=== PATIENT | male | born 1935 | race Caucasian/White ===

== ENCOUNTER 2022-09-18 16:00 | Inpatient (IN) | payer BC, OTHER ==
[2022-09-18] MEDS ORDERED: SODIUM CHLORIDE 1,000 ML IV STA (18:28)
[2022-09-18 19:17] LABS: BASO % 0.2 % (0-2.0); HEMATOCRIT 37.4 % (35.4-49); HEMOGLOBIN 12.4 GM/dL (11.7-16.9); LYMPH % 6.4 % (8-40); MCH 29.4 pg (25.7-33.7); MCHC 33.3 g/dl (32.0-35.9); MEAN CELL VOLUME 88.2 fl (80-96); MEAN PLT VOLUME 8.9 fl (7.5-11.1); MONO % 5.8 % (3.8-10.2); NEUT % 87.6 % (42.8-82.8); PLATELET COUNT 244 10^3/uL (134-434); RBC 4.23 M/mm3 (4.00-5.60); RDW 13.7 % (11.9-15.9); WHITE BLOOD COUNT 16.1 K/mm3 (4.0-10.0)
[2022-09-18 19:32] LABS: POTASSIUM 4.4 mmol/L (3.5-5.1)
[2022-09-18 19:33] LABS: CALCIUM 9.4 mg/dL (8.5-10.1)
[2022-09-18 19:34] LABS: ALBUMIN 3.6 g/dl (3.4-5.0); BLOOD UREA NITROGEN 18.7 mg/dL (7-18)
[2022-09-18 19:36] LABS: CREATININE 0.7 mg/dL (0.55-1.3)
[2022-09-18 19:38] LABS: BILIRUBIN,TOTAL 0.4 mg/dL (0.2-1); TOT PROT 6.9 g/dl (6.4-8.2)
[2022-09-18] MEDS ORDERED: HALOPERIDOL LACTATE 5 MG/ML IM ONE ×2 (20:17→20:27)
[2022-09-18 22:00] LABS: EPI CELLS 14 /uL (0-25.1); HYALINE CASTS 1 /uL (0-3.1); URINE APPEARANCE CLEAR; URINE BACTERIA 19 /uL (0-1359); URINE BILIRUBIN NEGATIVE (NEGATIVE); URINE COLOR YELLOW; URINE GLUCOSE (UA) NEGATIVE (NEGATIVE); URINE KETONE 1+ (NEGATIVE); URINE LEUK ESTERASE NEGATIVE (NEGATIVE); URINE NITRITE NEGATIVE (NEGATIVE); URINE PROTEIN NEGATIVE (NEGATIVE); URINE RBC 136 /uL (0-23.9); URINE WBC 4 /uL (0-25.8)
[2022-09-18] MEDS ORDERED: PIPERACILLIN/TAZOB 3.375 GM 3.375 GM in DEXTROSE 5%-WATER - 50 ML IVPB ONE (22:43)
[2022-09-18] MEDS ORDERED: PIPERACILLIN/TAZOB 3.375 GM 3.375 GM/50 ML BAG IVPB ONE (22:55)
[2022-09-19] MEDS ORDERED: BISACODYL 5 MG TABLET.DR (FP) PO PRN (05:17)
[2022-09-19] MEDS ORDERED: MELATONIN 5 MG TABLETS PO PRN (05:23)
[2022-09-19] MEDS: DEXTROSE 5%-0.45% SALINE 1,000 ML IV SCH (05:25)
[2022-09-19] MEDS: QUEtiapine FUMARATE 25 MG TABLET PO SCH ×3 (05:52→22:14)
[2022-09-19 08:20] LABS: BASO % 0.5 % (0-2.0); EOS % 0.1 % (0-4.5); HEMATOCRIT 34.1 % (35.4-49); HEMOGLOBIN 11.4 GM/dL (11.7-16.9); LYMPH % 7.6 % (8-40); MCHC 33.5 g/dl (32.0-35.9); MEAN CELL VOLUME 89.5 fl (80-96); MONO % 8.5 % (3.8-10.2); NEUT % 83.3 % (42.8-82.8); PLATELET COUNT 224 10^3/uL (134-434); RBC 3.81 M/mm3 (4.00-5.60); RDW 13.6 % (11.9-15.9); WHITE BLOOD COUNT 16.5 K/mm3 (4.0-10.0)
[2022-09-19 08:43] LABS: POTASSIUM 3.6 mmol/L (3.5-5.1)
[2022-09-19 08:49] LABS: ALBUMIN 3.2 g/dl (3.4-5.0); BLOOD UREA NITROGEN 17.4 mg/dL (7-18); CALCIUM 8.8 mg/dL (8.5-10.1)
[2022-09-19 08:50] LABS: CREATININE 0.7 mg/dL (0.55-1.3)
[2022-09-19 08:52] LABS: BILIRUBIN,TOTAL 0.7 mg/dL (0.2-1)
[2022-09-19] MEDS ORDERED: PIPERACILLIN/TAZOB 3.375 GM 3.375 GM in DEXTROSE 5%-WATER - 50 ML IVPB SCH (10:00)
[2022-09-19] MEDS: LISINOPRIL 5 MG TABLET PO SCH (10:08)
[2022-09-19] MEDS: CHOLECALCIFEROL (VIT D3) 1,000 UNIT (25 MCG) TABLET PO SCH (10:08)
[2022-09-19] MEDS: FERROUS SO4 325 MG TABLET (FP) PO SCH (10:08)
[2022-09-19] MEDS: traZODone HCL 50 MG TABLET (FP) PO SCH ×2 (10:08→22:14)
[2022-09-19] MEDS: LIDOCAINE 5% TOPICAL PATCH TP SCH (10:45)
[2022-09-19 18:15] LABS: N-TERMINAL BNP 885.6 pg/ml (5-450)
[2022-09-19] MEDS: PIPERACILLIN/TAZOB 3.375 GM 3.375 GM in DEXTROSE 5%-WATER - 50 ML IVPB SCH (18:18)
[2022-09-19] MEDS: DOCUSATE SODIUM 100 MG CAPSULE (FP) PO SCH (22:14)
[2022-09-19] MEDS: LIDOCAINE PATCH REMOVAL MC SCH (23:30)
[2022-09-20] MEDS: PIPERACILLIN/TAZOB 3.375 GM 3.375 GM in DEXTROSE 5%-WATER - 50 ML IVPB SCH ×3 (02:19→17:22)
[2022-09-20] MEDS: DEXTROSE 5%-0.45% SALINE 1,000 ML IV SCH (02:19)
[2022-09-20] MEDS: QUEtiapine FUMARATE 25 MG TABLET PO SCH ×3 (05:38→22:20)
[2022-09-20 10:27] LABS: BASO % 0.5 % (0-2.0); EOS % 1.3 % (0-4.5); HEMATOCRIT 37.1 % (35.4-49); HEMOGLOBIN 12.5 GM/dL (11.7-16.9); LYMPH % 17.4 % (8-40); MCHC 33.7 g/dl (32.0-35.9); MEAN CELL VOLUME 88.9 fl (80-96); MEAN PLT VOLUME 9.3 fl (7.5-11.1); MONO % 9.7 % (3.8-10.2); NEUT % 71.1 % (42.8-82.8); PLATELET COUNT 210 10^3/uL (134-434); RBC 4.18 M/mm3 (4.00-5.60); RDW 13.7 % (11.9-15.9); WHITE BLOOD COUNT 11.3 K/mm3 (4.0-10.0)
[2022-09-20 10:44] LABS: POTASSIUM 3.5 mmol/L (3.5-5.1)
[2022-09-20 10:53] LABS: BLOOD UREA NITROGEN 8.9 mg/dL (7-18); CALCIUM 8.9 mg/dL (8.5-10.1)
[2022-09-20 10:56] LABS: CREATININE 0.6 mg/dL (0.55-1.3)
[2022-09-20 10:58] LABS: BILIRUBIN,TOTAL 0.6 mg/dL (0.2-1)
[2022-09-20] MEDS: LIDOCAINE 5% TOPICAL PATCH TP SCH (11:59)
[2022-09-20] MEDS: traZODone HCL 50 MG TABLET (FP) PO SCH ×2 (11:59→22:19)
[2022-09-20] MEDS: FERROUS SO4 325 MG TABLET (FP) PO SCH (11:59)
[2022-09-20] MEDS: LISINOPRIL 5 MG TABLET PO SCH (12:00)
[2022-09-20] MEDS: CHOLECALCIFEROL (VIT D3) 1,000 UNIT (25 MCG) TABLET PO SCH (12:00)
[2022-09-20] MEDS: DOCUSATE SODIUM 100 MG CAPSULE (FP) PO SCH (22:19)
[2022-09-20] MEDS: LIDOCAINE PATCH REMOVAL MC SCH (22:19)
[2022-09-21] MEDS: PIPERACILLIN/TAZOB 3.375 GM 3.375 GM in DEXTROSE 5%-WATER - 50 ML IVPB SCH ×3 (02:00→18:21)
[2022-09-21] MEDS: DEXTROSE 5%-0.45% SALINE 1,000 ML IV SCH (05:23)
[2022-09-21] MEDS: QUEtiapine FUMARATE 25 MG TABLET PO SCH ×3 (05:24→23:21)
[2022-09-21] MEDS: LIDOCAINE 5% TOPICAL PATCH TP SCH (10:01)
[2022-09-21] MEDS: traZODone HCL 50 MG TABLET (FP) PO SCH ×2 (10:02→23:21)
[2022-09-21] MEDS: FERROUS SO4 325 MG TABLET (FP) PO SCH (10:02)
[2022-09-21] MEDS: CHOLECALCIFEROL (VIT D3) 1,000 UNIT (25 MCG) TABLET PO SCH (10:02)
[2022-09-21] MEDS: LISINOPRIL 5 MG TABLET PO SCH (10:02)
[2022-09-21] MEDS: OLANZapine 5 MG TABLET PO PRN (11:15)
[2022-09-21] MEDS: LIDOCAINE PATCH REMOVAL MC SCH (23:15)
[2022-09-21] MEDS: DOCUSATE SODIUM 100 MG CAPSULE (FP) PO SCH (23:21)
[2022-09-22] MEDS: PIPERACILLIN/TAZOB 3.375 GM 3.375 GM in DEXTROSE 5%-WATER - 50 ML IVPB SCH ×3 (01:58→17:32)
[2022-09-22] MEDS: QUEtiapine FUMARATE 25 MG TABLET PO SCH ×2 (06:31→14:32)
[2022-09-22] MEDS: DEXTROSE 5%-0.45% SALINE 1,000 ML IV SCH (06:32)
[2022-09-22] MEDS: CHOLECALCIFEROL (VIT D3) 1,000 UNIT (25 MCG) TABLET PO SCH (09:37)
[2022-09-22] MEDS: FERROUS SO4 325 MG TABLET (FP) PO SCH (09:37)
[2022-09-22] MEDS: LISINOPRIL 5 MG TABLET PO SCH (09:37)
[2022-09-22] MEDS: traZODone HCL 50 MG TABLET (FP) PO SCH (09:37)
[2022-09-22] MEDS: LIDOCAINE 5% TOPICAL PATCH TP SCH (09:37)
[2022-09-22 09:50] LABS: BASO % 0.7 % (0-2.0); EOS % 1.9 % (0-4.5); HEMATOCRIT 34.8 % (35.4-49); HEMOGLOBIN 11.6 GM/dL (11.7-16.9); MCH 29.9 pg (25.7-33.7); MCHC 33.2 g/dl (32.0-35.9); MEAN CELL VOLUME 89.9 fl (80-96); MONO % 6.9 % (3.8-10.2); NEUT % 81.5 % (42.8-82.8); PLATELET COUNT 245 10^3/uL (134-434); RBC 3.87 M/mm3 (4.00-5.60); RDW 13.1 % (11.9-15.9)
[2022-09-22 10:02] LABS: POTASSIUM 3.4 mmol/L (3.5-5.1)
[2022-09-22 10:08] LABS: ALBUMIN 2.8 g/dl (3.4-5.0); BLOOD UREA NITROGEN 10.6 mg/dL (7-18); CALCIUM 8.4 mg/dL (8.5-10.1)
[2022-09-22 10:11] LABS: CREATININE 0.6 mg/dL (0.55-1.3)
[2022-09-22 10:12] LABS: TOT PROT 5.7 g/dl (6.4-8.2)
[2022-09-22 10:13] LABS: BILIRUBIN,TOTAL 0.5 mg/dL (0.2-1)
[2022-09-22] MEDS ORDERED: KCL 10 MEQ IVPB 10 MEQ/100 ML INFUS.BAG IVPB SCH (10:15)
[2022-09-22] MEDS: OLANZapine 5 MG TABLET PO PRN (10:52)
[2022-09-22] MEDS: LIDOCAINE PATCH REMOVAL MC SCH (22:05)
[2022-09-22] MEDS: DOCUSATE SODIUM 100 MG CAPSULE (FP) PO SCH (22:05)
[2022-09-23] MEDS: traZODone HCL 50 MG TABLET (FP) PO SCH ×3 (00:51→21:27)
[2022-09-23] MEDS: QUEtiapine FUMARATE 25 MG TABLET PO SCH ×4 (00:51→21:26)
[2022-09-23] MEDS: PIPERACILLIN/TAZOB 3.375 GM 3.375 GM in DEXTROSE 5%-WATER - 50 ML IVPB SCH ×3 (01:39→18:20)
[2022-09-23] MEDS: DEXTROSE 5%-0.45% SALINE 1,000 ML IV SCH (01:39)
[2022-09-23] MEDS: LISINOPRIL 5 MG TABLET PO SCH (10:00)
[2022-09-23] MEDS: FERROUS SO4 325 MG TABLET (FP) PO SCH (10:05)
[2022-09-23] MEDS: CHOLECALCIFEROL (VIT D3) 1,000 UNIT (25 MCG) TABLET PO SCH (10:05)
[2022-09-23] MEDS: LIDOCAINE 5% TOPICAL PATCH TP SCH (10:07)
[2022-09-23] MEDS: DOCUSATE SODIUM 100 MG CAPSULE (FP) PO SCH (21:26)
[2022-09-23] MEDS: LIDOCAINE PATCH REMOVAL MC SCH (21:28)
[2022-09-24] MEDS: DEXTROSE 5%-0.45% SALINE 1,000 ML IV SCH (02:00)
[2022-09-24] MEDS: PIPERACILLIN/TAZOB 3.375 GM 3.375 GM in DEXTROSE 5%-WATER - 50 ML IVPB SCH ×3 (02:44→18:32)
[2022-09-24] MEDS: QUEtiapine FUMARATE 25 MG TABLET PO SCH ×3 (07:05→21:45)
[2022-09-24] MEDS: traZODone HCL 50 MG TABLET (FP) PO SCH ×2 (09:57→21:44)
[2022-09-24] MEDS: FERROUS SO4 325 MG TABLET (FP) PO SCH (09:57)
[2022-09-24] MEDS: CHOLECALCIFEROL (VIT D3) 1,000 UNIT (25 MCG) TABLET PO SCH (09:57)
[2022-09-24] MEDS: LISINOPRIL 5 MG TABLET PO SCH (09:58)
[2022-09-24] MEDS: OLANZapine 5 MG TABLET PO PRN (10:01)
[2022-09-24] MEDS: LIDOCAINE 5% TOPICAL PATCH TP SCH (10:05)
[2022-09-24 10:35] LABS: BASO % 0.6 % (0-2.0); EOS % 2.7 % (0-4.5); HEMATOCRIT 35.5 % (35.4-49); HEMOGLOBIN 11.6 GM/dL (11.7-16.9); LYMPH % 11.9 % (8-40); MCHC 32.8 g/dl (32.0-35.9); MEAN CELL VOLUME 88.3 fl (80-96); MEAN PLT VOLUME 9.2 fl (7.5-11.1); MONO % 6.7 % (3.8-10.2); NEUT % 78.1 % (42.8-82.8); PLATELET COUNT 293 10^3/uL (134-434); RBC 4.02 M/mm3 (4.00-5.60); WHITE BLOOD COUNT 12.4 K/mm3 (4.0-10.0)
[2022-09-24 10:43] LABS: POTASSIUM 3.3 mmol/L (3.5-5.1)
[2022-09-24 10:46] LABS: CALCIUM 8.4 mg/dL (8.5-10.1)
[2022-09-24 10:47] LABS: BLOOD UREA NITROGEN 7.8 mg/dL (7-18)
[2022-09-24 10:50] LABS: CREATININE 0.6 mg/dL (0.55-1.3)
[2022-09-24 10:52] LABS: BILIRUBIN,TOTAL 0.5 mg/dL (0.2-1)
[2022-09-24] MEDS: DOCUSATE SODIUM 100 MG CAPSULE (FP) PO SCH (21:44)
[2022-09-25] MEDS: PIPERACILLIN/TAZOB 3.375 GM 3.375 GM in DEXTROSE 5%-WATER - 50 ML IVPB SCH ×2 (02:19→11:05)
[2022-09-25] MEDS: QUEtiapine FUMARATE 25 MG TABLET PO SCH ×3 (05:30→23:33)
[2022-09-25] MEDS: LIDOCAINE PATCH REMOVAL MC SCH ×2 (05:30→23:33)
[2022-09-25] MEDS: CHOLECALCIFEROL (VIT D3) 1,000 UNIT (25 MCG) TABLET PO SCH (11:04)
[2022-09-25] MEDS: OLANZapine 5 MG TABLET PO PRN (11:04)
[2022-09-25] MEDS: LISINOPRIL 5 MG TABLET PO SCH (11:04)
[2022-09-25] MEDS: FERROUS SO4 325 MG TABLET (FP) PO SCH (11:04)
[2022-09-25] MEDS: traZODone HCL 50 MG TABLET (FP) PO SCH ×2 (11:04→23:33)
[2022-09-25] MEDS: LIDOCAINE 5% TOPICAL PATCH TP SCH (11:05)
[2022-09-25] MEDS ORDERED: LORazepam 2 MG/ML SDV VIAL IVPUSH PRN (12:51)
[2022-09-25] MEDS: LORazepam 2 MG/ML SDV VIAL IM PRN (13:52)
[2022-09-25 14:50] VITALS: BMI 23.3
[2022-09-25] MEDS: AMOX TR/POT CLAV 875MG/125MG TABLETS (FP) PO SCH (19:05)
[2022-09-25] MEDS: DOCUSATE SODIUM 100 MG CAPSULE (FP) PO SCH (23:33)
[2022-09-26] MEDS: QUEtiapine FUMARATE 25 MG TABLET PO SCH ×3 (05:08→13:57)
[2022-09-26] MEDS ORDERED: INSULIN SLIDING SCALE (NOVOLOG) 1 VIAL SQ ONE (06:18)
[2022-09-26 06:31] VITALS: RESP 18
[2022-09-26 09:31] LABS: BASO % 0.6 % (0-2.0); EOS % 3.8 % (0-4.5); HEMATOCRIT 33.6 % (35.4-49); HEMOGLOBIN 11.6 GM/dL (11.7-16.9); LYMPH % 18.6 % (8-40); MCHC 34.5 g/dl (32.0-35.9); MEAN CELL VOLUME 86.9 fl (80-96); MEAN PLT VOLUME 8.6 fl (7.5-11.1); MONO % 7.3 % (3.8-10.2); NEUT % 69.7 % (42.8-82.8); PLATELET COUNT 270 10^3/uL (134-434); RBC 3.87 M/mm3 (4.00-5.60); RDW 13.4 % (11.9-15.9); WHITE BLOOD COUNT 7.9 K/mm3 (4.0-10.0)
[2022-09-26] MEDS: LISINOPRIL 5 MG TABLET PO SCH (09:39)
[2022-09-26] MEDS: traZODone HCL 50 MG TABLET (FP) PO SCH (09:39)
[2022-09-26 09:40] LABS: POTASSIUM 3.6 mmol/L (3.5-5.1)
[2022-09-26] MEDS: LIDOCAINE 5% TOPICAL PATCH TP SCH (09:40)
[2022-09-26] MEDS: CHOLECALCIFEROL (VIT D3) 1,000 UNIT (25 MCG) TABLET PO SCH (09:40)
[2022-09-26] MEDS: FERROUS SO4 325 MG TABLET (FP) PO SCH (09:40)
[2022-09-26] MEDS: AMOX TR/POT CLAV 875MG/125MG TABLETS (FP) PO SCH (09:40)
[2022-09-26] MEDS: LORazepam 2 MG/ML SDV VIAL IM PRN (09:40)
[2022-09-26 09:48] LABS: ALBUMIN 2.8 g/dl (3.4-5.0); CALCIUM 8.4 mg/dL (8.5-10.1)
[2022-09-26 09:49] LABS: BLOOD UREA NITROGEN 9.9 mg/dL (7-18)
[2022-09-26 09:52] LABS: CREATININE 0.6 mg/dL (0.55-1.3)
[2022-09-26 09:53] LABS: BILIRUBIN,TOTAL 0.2 mg/dL (0.2-1); TOT PROT 5.7 g/dl (6.4-8.2)
[2022-09-26 13:29] VITALS: BP 113/52; PULSE 75; TEMP 97.6
== END 2022-09-26 15:04 | DRG 445 ==
LOC: JER 16:00 → JERBED 23:08 → J5S 09-19 03:17
PROVIDERS: ADMIT Internal Medicine; ATTEND Internal Medicine
DX: K81.0 Acute cholecystitis (principal); F03.918 Unspecified dementia, unspecified severity, with other behavioral disturbance; N17.9 Acute kidney failure, unspecified; I35.0 Nonrheumatic aortic (valve) stenosis; D72.829 Elevated white blood cell count, unspecified; I12.9 Hypertensive chronic kidney disease with stage 1 through stage 4 chronic kidney disease, or unspecified chronic kidney disease; N18.9 Chronic kidney disease, unspecified; E78.5 Hyperlipidemia, unspecified; R01.1 Cardiac murmur, unspecified; R47.02 Dysphasia; D64.9 Anemia, unspecified; R41.82 Altered mental status, unspecified; F32.A Depression, unspecified; Z86.73 Personal history of transient ischemic attack (TIA), and cerebral infarction without residual deficits
CPT/HCPCS: 36415; 71045-TC-FY; 74176-TC; 76705-TC; 80053; 80061; 81003; 82550; 82553; 83036; 83690; 83880; 84484; 85025; 87040; 87086; 87635; 93005; 93010; 93306-TC; 99285-25

== ENCOUNTER 2023-01-15 09:53 | Emergency (ER) | payer OTHER ==
[2023-01-15 10:17] VITALS: BMI 27.3
[2023-01-15] MEDS ORDERED: HALOPERIDOL LACTATE 5 MG/ML IM ONE (11:05)
[2023-01-15] MEDS ORDERED: HALOPERIDOL LACTATE 5 MG/ML ONE (11:07)
[2023-01-15] MEDS ORDERED: MIDAZOLAM HCL 2 MG/2 ML SINGLE DOSE VIAL IM ONE (11:20)
[2023-01-15] MEDS ORDERED: MIDAZOLAM HCL 2 MG/2 ML SINGLE DOSE VIAL ONE (11:27)
[2023-01-15 12:29] LABS: BASO % 0.6 % (0-2.0); EOS % 2.3 % (0-4.5); HEMATOCRIT 36.4 % (35.4-49); HEMOGLOBIN 12.3 GM/dL (11.7-16.9); LYMPH % 18.1 % (8-40); MCH 29.8 pg (25.7-33.7); MCHC 33.8 g/dl (32.0-35.9); MEAN CELL VOLUME 88.1 fl (80-96); MEAN PLT VOLUME 8.8 fl (7.5-11.1); MONO % 8.4 % (3.8-10.2); NEUT % 70.6 % (42.8-82.8); PLATELET COUNT 272 10^3/uL (134-434); RBC 4.14 M/mm3 (4.00-5.60); WHITE BLOOD COUNT 9.6 K/mm3 (4.0-10.0)
[2023-01-15 12:52] LABS: POTASSIUM 4.1 mmol/L (3.5-5.1)
[2023-01-15 12:54] LABS: ALBUMIN 3.5 g/dl (3.4-5.0); BLOOD UREA NITROGEN 23.2 mg/dL (7-18); CALCIUM 8.5 mg/dL (8.5-10.1)
[2023-01-15 12:57] LABS: CREATININE 0.7 mg/dL (0.55-1.3)
[2023-01-15 12:59] LABS: BILIRUBIN,TOTAL 0.2 mg/dL (0.2-1); TOT PROT 6.5 g/dl (6.4-8.2)
[2023-01-15 23:23] VITALS: BP 147/70; PULSE 84; RESP 17; TEMP 98.5
== END 2023-01-16 00:11 | disposition home or self-care (01) ==
LOC: JER 09:53
PROC: 3E023GC Introduction of Other Therapeutic Substance into Muscle, Percutaneous Approach (ICD-10-PCS; principal; 2023-01-15)
PROC: 3E023GC Introduction of Other Therapeutic Substance into Muscle, Percutaneous Approach (ICD-10-PCS; 2023-01-15)
DX: Z04.3 Encounter for examination and observation following other accident (principal)
CPT/HCPCS: 36415; 70450-TC; 71045-TC-FY; 72125-TC; 72192-TC; 80053; 82962; 83605; 84484; 85025; 87040; 93005; 93010; 99285-25

== ENCOUNTER 2023-04-20 11:24 | Emergency (ER) | payer OTHER ==
[2023-04-20 11:52] VITALS: BMI 24.5
[2023-04-20] MEDS ORDERED: HALOPERIDOL LACTATE 5 MG/ML ONE (11:56)
[2023-04-20] MEDS: HALOPERIDOL LACTATE 5 MG/ML IM ONE (12:01)
[2023-04-20 13:02] LABS: VENOUS O2 SATURATION 84.3 % (70-80); VENOUS PCO2 41.2 mmHg (38-52); VENOUS PH 7.413 (7.310-7.410)
[2023-04-20 13:04] LABS: BASO % 0.6 % (0-2.0); EOS % 1.9 % (0-4.5); HEMATOCRIT 33.6 % (35.4-49); HEMOGLOBIN 11.4 GM/dL (11.7-16.9); MCH 30.4 pg (25.7-33.7); MCHC 34.1 g/dl (32.0-35.9); MEAN CELL VOLUME 89.2 fl (80-96); MEAN PLT VOLUME 8.8 fl (7.5-11.1); MONO % 8.2 % (3.8-10.2); NEUT % 76.3 % (42.8-82.8); PLATELET COUNT 264 10^3/uL (134-434); RBC 3.77 M/mm3 (4.00-5.60); RDW 13.9 % (11.9-15.9); WHITE BLOOD COUNT 13.9 K/mm3 (4.0-10.0)
[2023-04-20 13:09] LABS: INR 1.1 (0.83-1.09); PROTHROMBIN TIME (PATIENT) 12.8 SEC (9.7-13.0)
[2023-04-20 13:12] LABS: ACTIVATED PTT 17.9 SECONDS (25.2-36.5)
[2023-04-20] MEDS ORDERED: MIDAZOLAM HCL 2 MG/2 ML SINGLE DOSE VIAL ONE (13:40)
[2023-04-20] MEDS: MIDAZOLAM HCL 2 MG/2 ML SINGLE DOSE VIAL IVPUSH ONE (13:59)
[2023-04-20] MEDS ORDERED: ACETAMINOPHEN INJECTION 100 ML IVPB ONE (14:16)
[2023-04-20 14:20] LABS: LACTIC ACID 2.2 mmol/L (0.4-2.0)
[2023-04-20] MEDS: SODIUM CHLORIDE 0.9% 500 ML INFUS.BAG IV ONE (14:21)
[2023-04-20] MEDS: ACETAMINOPHEN 1000 MG/100 ML BAG IVPB ONE (14:21)
[2023-04-20 14:42] LABS: URINE APPEARANCE CLEAR; URINE BILIRUBIN NEGATIVE (NEGATIVE); URINE COLOR YELLOW; URINE GLUCOSE (UA) NEGATIVE (NEGATIVE); URINE KETONE NEGATIVE (NEGATIVE); URINE LEUK ESTERASE NEGATIVE (NEGATIVE); URINE NITRITE NEGATIVE (NEGATIVE); URINE PROTEIN TRACE (NEGATIVE); URINE UROBILINOGEN 0.2 mg/dL (0.2-1.0)
[2023-04-20 14:56] LABS: POTASSIUM 3.8 mmol/L (3.5-5.1)
[2023-04-20 14:59] LABS: ALBUMIN 3.2 g/dl (3.4-5.0); CALCIUM 8.6 mg/dL (8.5-10.1)
[2023-04-20 15:00] LABS: BLOOD UREA NITROGEN 29.4 mg/dL (7-18)
[2023-04-20 15:02] LABS: CREATININE 0.7 mg/dL (0.55-1.3)
[2023-04-20 15:04] LABS: BILIRUBIN,TOTAL 0.3 mg/dL (0.2-1); TOT PROT 6.2 g/dl (6.4-8.2)
[2023-04-20 15:07] LABS: POTASSIUM 3.9 mmol/L (3.5-5.1)
[2023-04-20 15:09] LABS: ALBUMIN 3.2 g/dl (3.4-5.0); CALCIUM 8.8 mg/dL (8.5-10.1)
[2023-04-20 15:10] LABS: BLOOD UREA NITROGEN 28.3 mg/dL (7-18)
[2023-04-20 15:13] LABS: CREATININE 0.8 mg/dL (0.55-1.3)
[2023-04-20 15:14] LABS: BILIRUBIN,TOTAL 0.3 mg/dL (0.2-1)
[2023-04-20 15:15] VITALS: BP 130/64; PULSE 78; RESP 18
[2023-04-20 15:15] LABS: TOT PROT 6.2 g/dl (6.4-8.2)
[2023-04-20 15:27] VITALS: TEMP 97.6
== END 2023-04-20 21:10 | disposition home or self-care (01) ==
LOC: JER 11:24
PROC: 3E033NZ Introduction of Analgesics, Hypnotics, Sedatives into Peripheral Vein, Percutaneous Approach (ICD-10-PCS; principal; 2023-04-20)
PROC: 3E033GC Introduction of Other Therapeutic Substance into Peripheral Vein, Percutaneous Approach (ICD-10-PCS; 2023-04-20)
PROC: 3E023GC Introduction of Other Therapeutic Substance into Muscle, Percutaneous Approach (ICD-10-PCS; 2023-04-20)
DX: D72.829 Elevated white blood cell count, unspecified (principal); Z20.822 Contact with and (suspected) exposure to COVID-19
CPT/HCPCS: 0241U-QW; 36415; 70450-TC; 71045-TC-FY; 80053; 81003; 82550; 82553; 82803; 83605; 84484; 85025; 85610; 85730; 86850; 86900; 86901; 87040; 87086; 93005; 93010; 99285-25; J0131

== ENCOUNTER 2023-07-26 11:23 | Inpatient (IN) | payer OTHER ==
[2023-07-26] MEDS ORDERED: HALOPERIDOL LACTATE 5 MG/ML ONE (12:25)
[2023-07-26] MEDS: HALOPERIDOL LACTATE 5 MG/ML IM ONE (12:29)
[2023-07-26] MEDS ORDERED: ACETAMINOPHEN INJECTION 100 ML IVPB ONE (12:51)
[2023-07-26 13:50] LABS: HEMATOCRIT 32.9 % (35.4-49); HEMOGLOBIN 10.6 GM/dL (11.7-16.9); MCH 29.1 pg (25.7-33.7); MCHC 32.3 g/dl (32.0-35.9); PLATELET COUNT 447 10^3/uL (134-434); RBC 3.65 M/mm3 (4.00-5.60)
[2023-07-26 14:01] LABS: VENOUS BASE EXCESS -4.7 mmol/L (-2-2); VENOUS PCO2 35.4 mmHg (38-52); VENOUS PH 7.369 (7.310-7.410)
[2023-07-26 14:06] LABS: CHLORIDE 106 mmol/L (98-107); SODIUM 135 mmol/L (136-145)
[2023-07-26 14:08] LABS: GLUCOSE,RANDOM 128 mg/dL (74-106)
[2023-07-26 14:09] LABS: ALBUMIN 3.2 g/dl (3.4-5.0); BLOOD UREA NITROGEN 25.9 mg/dL (7-18); CO2 19 mmol/L (21-32)
[2023-07-26 14:11] LABS: SGPT/ALT 89 U/L (13-61)
[2023-07-26 14:12] LABS: CREATININE 1.3 mg/dL (0.55-1.3); SGOT/AST 87 U/L (15-37)
[2023-07-26 14:13] LABS: BILIRUBIN,TOTAL 0.7 mg/dL (0.2-1); TOT PROT 6.6 g/dl (6.4-8.2)
[2023-07-26 14:14] LABS: ALK PHOS 380 U/L (45-117)
[2023-07-26 14:15] LABS: ANION GAP 9 mmol/L (4-13); POTASSIUM 6.6 mmol/L (3.5-5.1)
[2023-07-26] MEDS: ACETAMINOPHEN 1000 MG/100 ML BAG IVPB ONE (14:16)
[2023-07-26] MEDS: SODIUM CHLORIDE 0.9% 500 ML INFUS.BAG IV ONE ×3 (14:16→19:48)
[2023-07-26] MEDS ORDERED: ONDANSETRON 4 MG/2 ML VIAL ONE (14:17)
[2023-07-26 14:20] LABS: LACTIC ACID 5.6 mmol/L (0.4-2.0)
[2023-07-26 14:27] LABS: URINE APPEARANCE CLEAR; URINE BILIRUBIN NEGATIVE (NEGATIVE); URINE COLOR YELLOW; URINE GLUCOSE (UA) NEGATIVE (NEGATIVE); URINE KETONE NEGATIVE (NEGATIVE); URINE LEUK ESTERASE NEGATIVE (NEGATIVE); URINE NITRITE NEGATIVE (NEGATIVE); URINE PROTEIN TRACE (NEGATIVE)
[2023-07-26 14:50] LABS: ANISOCYTOSIS 0; HELMET CELLS 0; HOWELL-JOLLY BODIES 0; MACROCYTOSIS 0; OVALOCYTE 0; ROULEAU 0; SICKELED CELLS 0; TARGET CELLS 0; TEAR DROP CELLS 0; TOXIC GRANULATION 0
[2023-07-26] MEDS: ONDANSETRON 4 MG/2 ML VIAL IVPUSH ONE (14:51)
[2023-07-26] MEDS ORDERED: PIPERACILLIN/TAZOB 4.5 GM 4.5 GM/100 ML BAG IVPB ONE (15:32)
[2023-07-26] MEDS: PIPERACILLIN/TAZOB 4.5 GM 4.5 GM in DEXTROSE 5%-WATER 100 ML IVPB ONE (15:38)
[2023-07-26] MEDS: LORazepam 2 MG/ML SDV VIAL IM ONE (15:39)
[2023-07-26] MEDS ORDERED: VANCOMYCIN/WATER 1250 MG 1,250 MG/250 ML BAG IVPB ONE (16:14)
[2023-07-26] MEDS: VANCOMYCIN/WATER 1250 MG 1,250 MG/250 ML BAG IVPB ONE (16:34)
[2023-07-26 16:44] LABS: POTASSIUM 4.7 mmol/L (3.5-5.1)
[2023-07-26 16:45] LABS: CALCIUM 7.8 mg/dL (8.5-10.1)
[2023-07-26 16:46] LABS: BLOOD UREA NITROGEN 27.2 mg/dL (7-18)
[2023-07-26 16:49] LABS: CREATININE 1.2 mg/dL (0.55-1.3)
[2023-07-26 16:52] LABS: LACTIC ACID 3.8 mmol/L (0.4-2.0)
[2023-07-26] MEDS: SODIUM CHLORIDE 1,000 ML IV STA (18:03)
[2023-07-26 18:10] LABS: BASO % 0.2 % (0-2.0); HEMOGLOBIN 9.3 GM/dL (11.7-16.9); MCH 29.2 pg (25.7-33.7); MCHC 33.1 g/dl (32.0-35.9); MEAN CELL VOLUME 88.4 fl (80-96); MEAN PLT VOLUME 8.5 fl (7.5-11.1); MONO % 6.2 % (3.8-10.2); NEUT % 88.6 % (42.8-82.8); PLATELET COUNT 332 10^3/uL (134-434); RBC 3.17 M/mm3 (4.00-5.60); RDW 14.6 % (11.9-15.9)
[2023-07-26 18:32] LABS: LACTIC ACID 3.1 mmol/L (0.4-2.0)
[2023-07-26] MEDS ORDERED: MIDAZOLAM HCL 2 MG/2 ML SINGLE DOSE VIAL ONE (18:36)
[2023-07-26] MEDS: MIDAZOLAM HCL 2 MG/2 ML SINGLE DOSE VIAL IVPUSH ONE (18:42)
[2023-07-26 18:57] LABS: ANISOCYTOSIS 1+; MACROCYTOSIS 1+
[2023-07-26] MEDS: SODIUM CHLORIDE 1,000 ML IV SCH (21:46)
[2023-07-26] MEDS ORDERED: QUEtiapine FUMARATE 25 MG TABLET ONE (22:26)
[2023-07-26] MEDS: QUEtiapine FUMARATE 50 MG TABLET PO SCH (22:31)
[2023-07-27] MEDS: VANCOMYCIN 1,000 MG in DEXTROSE 5%-WATER - 250 ML IVPB SCH (01:01)
[2023-07-27] MEDS: PIPERACILLIN/TAZOB 3.375 GM 3.375 GM in DEXTROSE 5%-WATER - 50 ML IVPB SCH ×2 (02:13→17:30)
[2023-07-27] MEDS: SENNOSIDES 8.6MG TABLET (FP) PO SCH (09:21)
[2023-07-27] MEDS: DEXTROSE 5%-LACTATED RINGERS 1,000 ML IV SCH (11:43)
[2023-07-27 12:17] LABS: BASO % 0.1 % (0-2.0); EOS % 0.2 % (0-4.5); HEMATOCRIT 24.7 % (35.4-49); HEMOGLOBIN 8.1 GM/dL (11.7-16.9); LYMPH % 9.4 % (8-40); MCH 29.1 pg (25.7-33.7); MCHC 32.9 g/dl (32.0-35.9); MEAN CELL VOLUME 88.5 fl (80-96); MEAN PLT VOLUME 8.3 fl (7.5-11.1); NEUT % 82.3 % (42.8-82.8); PLATELET COUNT 279 10^3/uL (134-434); RBC 2.79 M/mm3 (4.00-5.60); RDW 15.2 % (11.9-15.9); WHITE BLOOD COUNT 15.1 K/mm3 (4.0-10.0)
[2023-07-27 12:37] LABS: POTASSIUM 4.3 mmol/L (3.5-5.1)
[2023-07-27 12:38] LABS: CALCIUM 7.8 mg/dL (8.5-10.1)
[2023-07-27 12:39] LABS: BLOOD UREA NITROGEN 28.5 mg/dL (7-18)
[2023-07-27 12:42] LABS: CREATININE 0.8 mg/dL (0.55-1.3)
[2023-07-27] MEDS ORDERED: VANCOMYCIN/WATER FOR INJ (PEG) 1,000 MG/200 ML BAG IVPB SCH (13:00)
[2023-07-27] MEDS: VANCOMYCIN/WATER FOR INJ (PEG) 1,000 MG/200 ML BAG IVPB SCH (16:49)
[2023-07-27] MEDS: ACETAMINOPHEN 1000 MG/100 ML BAG IVPB PRN (20:41)
[2023-07-27] MEDS: QUEtiapine FUMARATE 50 MG TABLET PO PRN (21:32)
[2023-07-27] MEDS: MELATONIN 5 MG TABLETS PO PRN (21:32)
[2023-07-28 07:23] LABS: N-TERMINAL BNP 634.8 pg/ml (5-450)
[2023-07-28 08:14] LABS: N-TERMINAL BNP 641.8 pg/ml (5-450)
[2023-07-28 10:17] LABS: MAGNESIUM 2.4 mg/dL (1.8-2.4)
[2023-07-28 10:18] LABS: ALBUMIN 2.7 g/dl (3.4-5.0)
[2023-07-28 10:21] LABS: PHOSPHOROUS 3.6 mg/dL (2.5-4.9)
[2023-07-28 10:22] LABS: BILIRUBIN,TOTAL 0.7 mg/dL (0.2-1); TOT PROT 5.1 g/dl (6.4-8.2)
[2023-07-29 07:01] LABS: HEMATOCRIT 21.6 % (35.4-49); HEMOGLOBIN 7.2 GM/dL (11.7-16.9); MCH 29.8 pg (25.7-33.7); MCHC 33.3 g/dl (32.0-35.9); MEAN CELL VOLUME 89.5 fl (80-96); MEAN PLT VOLUME 8.9 fl (7.5-11.1); PLATELET COUNT 219 10^3/uL (134-434); RBC 2.41 M/mm3 (4.00-5.60); RDW 14.5 % (11.9-15.9); WHITE BLOOD COUNT 11.4 K/mm3 (4.0-10.0)
[2023-07-29 07:10] LABS: INR 1.03 (0.83-1.09); PROTHROMBIN TIME (PATIENT) 11.8 SEC (9.7-13.0)
[2023-07-29 07:13] LABS: ACTIVATED PTT 25.4 SECONDS (25.2-36.5)
[2023-07-29 07:26] LABS: POTASSIUM 3.4 mmol/L (3.5-5.1)
[2023-07-29 07:29] LABS: CALCIUM 7.8 mg/dL (8.5-10.1)
[2023-07-29 07:30] LABS: ALBUMIN 2.4 g/dl (3.4-5.0); BLOOD UREA NITROGEN 17.3 mg/dL (7-18)
[2023-07-29 07:33] LABS: CREATININE 0.5 mg/dL (0.55-1.3); PHOSPHOROUS 2.6 mg/dL (2.5-4.9)
[2023-07-29 07:34] LABS: TOT PROT 4.9 g/dl (6.4-8.2)
[2023-07-29 07:35] LABS: BILIRUBIN,TOTAL 0.6 mg/dL (0.2-1)
[2023-07-29] MEDS: POTASSIUM CHLORIDE ORAL LIQUID 20 MEQ/15 ML PO ONE (09:59)
[2023-07-29] MEDS ORDERED: ACETAMINOPHEN INJECTION 100 ML IVPB ONE (11:42)
[2023-07-29] MEDS: ACETAMINOPHEN 1000 MG/100 ML BAG IVPB ONE (11:43)
[2023-07-29] MEDS: ACETAMINOPHEN 1000 MG/100 ML BAG IVPB PRN (18:25)
[2023-07-30 06:36] LABS: HEMATOCRIT 28.4 % (35.4-49); HEMOGLOBIN 9.6 GM/dL (11.7-16.9); MCH 30.7 pg (25.7-33.7); MCHC 33.8 g/dl (32.0-35.9); MEAN CELL VOLUME 90.7 fl (80-96); MEAN PLT VOLUME 8.9 fl (7.5-11.1); PLATELET COUNT 230 10^3/uL (134-434); RBC 3.13 M/mm3 (4.00-5.60); WHITE BLOOD COUNT 10.3 K/mm3 (4.0-10.0)
[2023-07-30 06:57] LABS: POTASSIUM 3.7 mmol/L (3.5-5.1)
[2023-07-30 07:02] LABS: CALCIUM 7.9 mg/dL (8.5-10.1)
[2023-07-30 07:04] LABS: ALBUMIN 2.4 g/dl (3.4-5.0); BLOOD UREA NITROGEN 11.4 mg/dL (7-18); MAGNESIUM 1.9 mg/dL (1.8-2.4)
[2023-07-30 07:05] LABS: CREATININE 0.4 mg/dL (0.55-1.3)
[2023-07-30 07:06] LABS: BILIRUBIN,TOTAL 0.9 mg/dL (0.2-1); TOT PROT 5.1 g/dl (6.4-8.2)
[2023-07-30] MEDS ORDERED: SUCCINYLCHOLINE CHLORIDE 200 MG/10 ML SYRINGE ONE (14:34)
[2023-07-30] MEDS ORDERED: ETOMIDATE 20 MG/10 ML VIAL IVPUSH ONE (14:34)
[2023-07-30] MEDS ORDERED: MIDAZOLAM HCL 2 MG/2 ML SINGLE DOSE VIAL ONE (15:12)
[2023-07-30] MEDS ORDERED: FENTANYL CITRATE/PF 50 MCG/ML VIAL ONE ×4 (15:12→16:31)
[2023-07-30] MEDS ORDERED: LIDOCAINE HCL 2% 100 MG/5 ML DISP.SYRIN ONE (15:51)
[2023-07-30] MEDS ORDERED: LACTATED RINGERS SOLUTION 1,000 ML IV SCH (17:03)
[2023-07-30] MEDS ORDERED: ACETAMINOPHEN 1000 MG/100 ML BAG IVPB PRN ×2 (17:03→21:46)
[2023-07-30] MEDS: DEXTROSE 5%-LACTATED RINGERS 1,000 ML IV SCH (17:48)
[2023-07-30] MEDS: PIPERACILLIN/TAZOB 3.375 GM 3.375 GM in DEXTROSE 5%-WATER - 50 ML IVPB SCH (17:48)
[2023-07-30] MEDS ORDERED: CEFAZOLIN 1 GM/D5W 50 ML IVPB SCH (18:00)
[2023-07-30] MEDS: LACTATED RINGERS SOLUTION 1,000 ML IV SCH (19:25)
[2023-07-30] MEDS ORDERED: QUEtiapine FUMARATE 25 MG TABLET ONE (21:35)
[2023-07-30] MEDS: MELATONIN 5 MG TABLETS PO PRN (21:45)
[2023-07-30] MEDS: QUEtiapine FUMARATE 50 MG TABLET PO PRN (21:45)
[2023-07-30] MEDS: DOCUSATE SODIUM 100 MG CAPSULE (FP) PO SCH (21:46)
[2023-07-30] MEDS ORDERED: QUEtiapine FUMARATE 50 MG TABLET PO PRN (21:46)
[2023-07-31] MEDS: PIPERACILLIN/TAZOB 3.375 GM 3.375 GM in DEXTROSE 5%-WATER - 50 ML IVPB SCH (02:23)
[2023-07-31] MEDS: DEXTROSE 5%-LACTATED RINGERS 1,000 ML IV SCH (05:38)
[2023-07-31] MEDS ORDERED: QUEtiapine FUMARATE 25 MG TABLET ONE (09:22)
[2023-07-31] MEDS: QUEtiapine FUMARATE 25 MG TABLET PO PRN (09:27)
[2023-07-31 10:00] LABS: HEMATOCRIT 21.9 % (35.4-49); HEMOGLOBIN 7.3 GM/dL (11.7-16.9); MCH 29.9 pg (25.7-33.7); MCHC 33.3 g/dl (32.0-35.9); MEAN CELL VOLUME 89.9 fl (80-96); MEAN PLT VOLUME 8.8 fl (7.5-11.1); PLATELET COUNT 257 10^3/uL (134-434); RBC 2.44 M/mm3 (4.00-5.60); RDW 13.8 % (11.9-15.9); WHITE BLOOD COUNT 12.2 K/mm3 (4.0-10.0)
[2023-07-31] MEDS ORDERED: SENNOSIDES 8.6MG TABLET (FP) PO SCH (10:00)
[2023-07-31] MEDS ORDERED: ASPIRIN 325 MG TABLET PO SCH ×2 (10:00)
[2023-07-31 10:31] LABS: POTASSIUM 3.3 mmol/L (3.5-5.1)
[2023-07-31] MEDS: SENNOSIDES 8.6MG TABLET (FP) PO SCH (10:40)
[2023-07-31] MEDS: ASPIRIN 325 MG TABLET PO SCH (10:40)
[2023-07-31 10:43] LABS: ALBUMIN 2.1 g/dl (3.4-5.0); BLOOD UREA NITROGEN 13.5 mg/dL (7-18); CALCIUM 7.8 mg/dL (8.5-10.1); MAGNESIUM 1.9 mg/dL (1.8-2.4)
[2023-07-31 10:44] LABS: CREATININE 0.5 mg/dL (0.55-1.3); PHOSPHOROUS 3.1 mg/dL (2.5-4.9)
[2023-07-31 10:46] LABS: BILIRUBIN,TOTAL 1.1 mg/dL (0.2-1); TOT PROT 4.6 g/dl (6.4-8.2)
[2023-07-31] MEDS: POTASSIUM CHLORIDE ORAL LIQUID 20 MEQ/15 ML PO ONE (12:59)
[2023-07-31] MEDS ORDERED: VANCOMYCIN/WATER FOR INJ (PEG) 1,000 MG/200 ML BAG IVPB SCH (16:00)
[2023-07-31] MEDS: VANCOMYCIN/WATER FOR INJ (PEG) 1,000 MG/200 ML BAG IVPB SCH (16:58)
[2023-07-31] MEDS: ACETAMINOPHEN 1000 MG/100 ML BAG IVPB PRN (17:05)
[2023-07-31] MEDS: MAGNESIUM HYDROX 2400MG/30ML ORAL SUSPENSION 30 ML CUP PO SCH (21:48)
[2023-07-31] MEDS: MELATONIN 5 MG TABLETS PO PRN (21:48)
[2023-07-31] MEDS: METOPROLOL TARTRATE 25 MG TABLET (FP) PO SCH (21:49)
[2023-08-01 09:38] LABS: HEMATOCRIT 19.8 % (35.4-49); MCH 31.3 pg (25.7-33.7); MCHC 34.7 g/dl (32.0-35.9); MEAN CELL VOLUME 90.1 fl (80-96); MEAN PLT VOLUME 8.7 fl (7.5-11.1); PLATELET COUNT 242 10^3/uL (134-434); RBC 2.19 M/mm3 (4.00-5.60); RDW 14.8 % (11.9-15.9); WHITE BLOOD COUNT 11.4 K/mm3 (4.0-10.0)
[2023-08-01 09:57] LABS: POTASSIUM 3.8 mmol/L (3.5-5.1)
[2023-08-01 10:02] LABS: ALBUMIN 2.2 g/dl (3.4-5.0); BLOOD UREA NITROGEN 16.3 mg/dL (7-18); CALCIUM 7.8 mg/dL (8.5-10.1); MAGNESIUM 1.9 mg/dL (1.8-2.4)
[2023-08-01 10:05] LABS: CREATININE 0.4 mg/dL (0.55-1.3); PHOSPHOROUS 2.2 mg/dL (2.5-4.9)
[2023-08-01 10:06] LABS: BILIRUBIN,TOTAL 1.2 mg/dL (0.2-1); HEMOGLOBIN 6.9 GM/dL (11.7-16.9); TOT PROT 4.6 g/dl (6.4-8.2)
[2023-08-01] MEDS: ACETAMINOPHEN 325 MG TABLET (FP) PO ONE (13:23)
[2023-08-01] MEDS: NAPH,MB-DB/K PH,MBDB POWDER PACKET PO ONE (13:24)
[2023-08-01] MEDS: LORazepam 2 MG/ML SDV VIAL IM ONE (15:58)
[2023-08-01] MEDS: VANCOMYCIN/WATER FOR INJ (PEG) 1,000 MG/200 ML BAG IVPB SCH (21:04)
[2023-08-02 09:05] LABS: HEMATOCRIT 24.9 % (35.4-49); HEMOGLOBIN 8.6 GM/dL (11.7-16.9); MCH 30.7 pg (25.7-33.7); MCHC 34.5 g/dl (32.0-35.9); MEAN CELL VOLUME 89.1 fl (80-96); MEAN PLT VOLUME 8.5 fl (7.5-11.1); PLATELET COUNT 256 10^3/uL (134-434); RBC 2.79 M/mm3 (4.00-5.60); RDW 15.5 % (11.9-15.9); WHITE BLOOD COUNT 11.9 K/mm3 (4.0-10.0)
[2023-08-02 09:20] LABS: POTASSIUM 3.9 mmol/L (3.5-5.1)
[2023-08-02 09:31] LABS: BLOOD UREA NITROGEN 19.2 mg/dL (7-18); CALCIUM 7.4 mg/dL (8.5-10.1)
[2023-08-02 09:32] LABS: MAGNESIUM 1.9 mg/dL (1.8-2.4)
[2023-08-02 09:34] LABS: CREATININE 0.4 mg/dL (0.55-1.3); PHOSPHOROUS 2.5 mg/dL (2.5-4.9)
[2023-08-03 09:40] LABS: HEMATOCRIT 25.2 % (35.4-49); HEMOGLOBIN 8.7 GM/dL (11.7-16.9); MCH 30.6 pg (25.7-33.7); MCHC 34.4 g/dl (32.0-35.9); MEAN PLT VOLUME 8.8 fl (7.5-11.1); PLATELET COUNT 277 10^3/uL (134-434); RBC 2.83 M/mm3 (4.00-5.60); RDW 15.3 % (11.9-15.9); WHITE BLOOD COUNT 10.8 K/mm3 (4.0-10.0)
[2023-08-03 10:07] LABS: POTASSIUM 4.1 mmol/L (3.5-5.1)
[2023-08-03 10:08] LABS: CALCIUM 7.9 mg/dL (8.5-10.1)
[2023-08-03 10:09] LABS: BLOOD UREA NITROGEN 12.1 mg/dL (7-18)
[2023-08-03 10:12] LABS: CREATININE 0.4 mg/dL (0.55-1.3)
[2023-08-03 10:16] LABS: MAGNESIUM 2.1 mg/dL (1.8-2.4)
[2023-08-03 10:18] LABS: ANISOCYTOSIS 3+; MACROCYTOSIS 0
[2023-08-03] MEDS: morphine SULFATE IMMEDIATE RELEASE 30 MG TAB PO PRN (14:44)
[2023-08-03 16:00] VITALS: RESP 18
[2023-08-04 14:17] VITALS: BMI 24.0
[2023-08-05 06:54] VITALS: TEMP 98.3
[2023-08-05] MEDS: LORazepam 2 MG/ML SDV VIAL IM ONE (07:43)
[2023-08-05 09:09] VITALS: BP 112/90; PULSE 92
== END 2023-08-05 11:26 | DRG 853 ==
LOC: JER 11:23 → JERBED 18:33 → UNDOADMIN 18:33 → J2W 07-27 00:46 → J5S 07-30 21:22
PROVIDERS: ADMIT Internal Medicine
PROC: 30233N1 Transfusion of Nonautologous Red Blood Cells into Peripheral Vein, Percutaneous Approach (ICD-10-PCS; 2023-07-29)
PROC: 0QS704Z Reposition Left Upper Femur with Internal Fixation Device, Open Approach (ICD-10-PCS; principal; 2023-07-30 16:00)
PROC: 02HV33Z Insertion of Infusion Device into Superior Vena Cava, Percutaneous Approach (ICD-10-PCS; 2023-08-01)
PROC: B548ZZA Ultrasonography of Superior Vena Cava, Guidance (ICD-10-PCS; 2023-08-01)
DX: A41.9 Sepsis, unspecified organism (principal); E43 Unspecified severe protein-calorie malnutrition; G93.41 Metabolic encephalopathy; S72.142A Displaced intertrochanteric fracture of left femur, initial encounter for closed fracture; K81.0 Acute cholecystitis; E87.20 Acidosis, unspecified; I10 Essential (primary) hypertension; E78.5 Hyperlipidemia, unspecified; D64.9 Anemia, unspecified; F03.90 Unspecified dementia, unspecified severity, without behavioral disturbance, psychotic disturbance, mood disturbance, and anxiety; W19.XXXA Unspecified fall, initial encounter; Y93.9 Activity, unspecified; Y92.89 Other specified places as the place of occurrence of the external cause; Y99.9 Unspecified external cause status; Z68.23 Body mass index [BMI] 23.0-23.9, adult; F32.A Depression, unspecified; E87.6 Hypokalemia; K59.00 Constipation, unspecified
CPT/HCPCS: 0241U-QW; 36415; 36430; 70450-TC; 71045-TC-FY; 72125-TC; 72170-TC-FY; 74177-TC; 76000-TC-FY; 76705-TC; 80048; 80053; 80061; 81003; 82272; 82550; 82553; 82728; 82803; 82962; 82977; 83036; 83540; 83550; 83605; 83735; 83880; 84100; 84439; 84443; 84450; 84460; 84466; 84484; 85025; 85027; 85610; 85730; 86850; 86900; 86901; 86922; 87040; 87086; 87635; 93005; 93010; 93306-TC; 94760; 97161-GP; 99285-25; C1713; J0131; P9038; P9058

== ENCOUNTER 2023-09-10 13:59 | Emergency (ER) | payer OTHER ==
[2023-09-10 14:50] VITALS: BMI 23.9
[2023-09-10] MEDS: LORazepam 2 MG/ML SDV VIAL IM ONE ×3 (15:13→16:35)
[2023-09-10 17:24] VITALS: TEMP 98.3
[2023-09-10 23:15] VITALS: BP 114/69; PULSE 67; RESP 16
== END 2023-09-11 04:26 ==
LOC: JER 13:59
PROC: 3E023GC Introduction of Other Therapeutic Substance into Muscle, Percutaneous Approach (ICD-10-PCS; principal; 2023-09-10)
PROC: 3E023GC Introduction of Other Therapeutic Substance into Muscle, Percutaneous Approach (ICD-10-PCS; 2023-09-10)
PROC: 3E023GC Introduction of Other Therapeutic Substance into Muscle, Percutaneous Approach (ICD-10-PCS; 2023-09-10)
DX: R22.0 Localized swelling, mass and lump, head (principal); R45.1 Restlessness and agitation; W19.XXXA Unspecified fall, initial encounter
CPT/HCPCS: 70450-TC; 71045-TC-FY; 72125-TC; 72170-TC-FY; 99284-25

== ENCOUNTER 2024-02-12 09:15 | Inpatient (IN) | payer OTHER ==
[2024-02-12] MEDS ORDERED: VANCOMYCIN HCL 1,500 MG in DEXTROSE 5%-WATER - 500 ML IVPB ONE (11:18)
[2024-02-12 11:45] LABS: EPI CELLS 1 /uL (0-25.1); HYALINE CASTS 5 /uL (0-3.1); PH,URINE 5.5 (5.0-8.0); URINE APPEARANCE TURBID; URINE BACTERIA >9,000 /uL (0-1359); URINE BILIRUBIN NEGATIVE (NEGATIVE); URINE COLOR ORANGE; URINE GLUCOSE (UA) NEGATIVE (NEGATIVE); URINE KETONE NEGATIVE (NEGATIVE); URINE LEUK ESTERASE 3+ (NEGATIVE); URINE NITRITE POSITIVE (NEGATIVE); URINE PROTEIN 1+ (NEGATIVE); URINE RBC 62 /uL (0-23.9); URINE UROBILINOGEN 0.2 mg/dL (0.2-1.0); URINE WBC 973 /uL (0-25.8)
[2024-02-12 12:22] LABS: URINE CRYSTALS NONE SEEN /hpf
[2024-02-12] MEDS ORDERED: ACETAMINOPHEN INJECTION 100 ML ONE (12:30)
[2024-02-12] MEDS ORDERED: PIPERACILLIN/TAZOB 4.5 GM 4.5 GM/100 ML BAG IVPB ONE (12:30)
[2024-02-12] MEDS: SODIUM CHLORIDE 0.9% 500 ML INFUS.BAG IV ONE ×2 (12:34→14:40)
[2024-02-12] MEDS: ACETAMINOPHEN 1000 MG/100 ML BAG IVPB ONE (12:34)
[2024-02-12] MEDS: PIPERACILLIN/TAZOB 4.5 GM 4.5 GM in DEXTROSE 5%-WATER 100 ML IVPB ONE (12:35)
[2024-02-12 13:00] LABS: VENOUS BASE EXCESS 2.4 mmol/L (-2-2); VENOUS O2 SATURATION 23.6 % (70-80); VENOUS PH 7.395 (7.310-7.410)
[2024-02-12 13:23] LABS: BASO % 0.2 % (0-2.0); EOS % 0.1 % (0-4.5); HEMATOCRIT 41.2 % (35.4-49); HEMOGLOBIN 13.6 GM/dL (11.7-16.9); LYMPH % 4.1 % (8-40); MCH 30.1 pg (25.7-33.7); MCHC 33.1 g/dl (32.0-35.9); MEAN CELL VOLUME 91.1 fl (80-96); MEAN PLT VOLUME 9.3 fl (7.5-11.1); MONO % 5.3 % (3.8-10.2); NEUT % 90.3 % (42.8-82.8); PLATELET COUNT 250 10^3/uL (134-434); RBC 4.52 M/mm3 (4.00-5.60); RDW 14.5 % (11.9-15.9); WHITE BLOOD COUNT 14.7 K/mm3 (4.0-10.0)
[2024-02-12 13:37] LABS: INR 0.87 (0.83-1.09)
[2024-02-12 13:38] LABS: LACTIC ACID 2.5 mmol/L (0.4-2.0)
[2024-02-12 13:40] LABS: ACTIVATED PTT 31.6 SECONDS (25.2-36.5)
[2024-02-12 13:46] LABS: POTASSIUM 3.8 mmol/L (3.5-5.1)
[2024-02-12 13:49] LABS: ALBUMIN 3.8 g/dl (3.4-5.0)
[2024-02-12 14:03] LABS: CALCIUM 9.4 mg/dL (8.5-10.1)
[2024-02-12 14:08] LABS: BILIRUBIN,TOTAL 0.9 mg/dL (0.2-1); TOT PROT 7.1 g/dl (6.4-8.2)
[2024-02-12 14:23] LABS: BLOOD UREA NITROGEN 20.3 mg/dL (7-18)
[2024-02-12 14:26] LABS: CREATININE 0.7 mg/dL (0.55-1.3); PHOSPHOROUS 2.7 mg/dL (2.5-4.9)
[2024-02-12] MEDS: VANCOMYCIN PREMIX 1.5 GM 1,500 MG/300 ML BAG IVPB ONE (14:45)
[2024-02-12] MEDS ORDERED: QUEtiapine FUMARATE 25 MG TABLET ONE (15:08)
[2024-02-12] MEDS: QUEtiapine FUMARATE 50 MG TABLET PO ONE (15:20)
[2024-02-12] MEDS ORDERED: LORazepam 2 MG/ML SDV VIAL ONE (18:17)
[2024-02-12] MEDS: LORazepam 2 MG/ML SDV VIAL IVPUSH ONE (19:08)
[2024-02-12] MEDS: LORazepam 2 MG/ML SDV VIAL IM ONE (19:08)
[2024-02-12] MEDS ORDERED: PIPERACILLIN/TAZOB 3.375 GM 3.375 GM/50 ML BAG IVPB ONE (19:42)
[2024-02-12] MEDS: PIPERACILLIN/TAZOB 3.375 GM 50 ML IVPB SCH (19:54)
[2024-02-12] MEDS: METOPROLOL TARTRATE 25 MG TABLET (FP) PO SCH (22:55)
[2024-02-12] MEDS: QUEtiapine FUMARATE 25 MG TABLET PO SCH (22:55)
[2024-02-13] MEDS: ENOXAPARIN NA (PORCINE) 40 MG/0.4 ML DISP.SYRIN SQ SCH (09:30)
[2024-02-13 09:38] LABS: HEMATOCRIT 38.6 % (35.4-49); MCH 30.6 pg (25.7-33.7); MCHC 33.7 g/dl (32.0-35.9); MEAN CELL VOLUME 90.9 fl (80-96); MEAN PLT VOLUME 9.3 fl (7.5-11.1); PLATELET COUNT 230 10^3/uL (134-434); RBC 4.24 M/mm3 (4.00-5.60); RDW 14.6 % (11.9-15.9); WHITE BLOOD COUNT 9.7 K/mm3 (4.0-10.0)
[2024-02-13 09:46] LABS: POTASSIUM 3.5 mmol/L (3.5-5.1)
[2024-02-13 10:00] LABS: CALCIUM 8.9 mg/dL (8.5-10.1)
[2024-02-13 10:01] LABS: ALBUMIN 3.4 g/dl (3.4-5.0); BLOOD UREA NITROGEN 13.6 mg/dL (7-18)
[2024-02-13 10:02] LABS: CREATININE 0.5 mg/dL (0.55-1.3)
[2024-02-13 10:03] LABS: PHOSPHOROUS 3.1 mg/dL (2.5-4.9)
[2024-02-13 10:04] LABS: BILIRUBIN,TOTAL 0.9 mg/dL (0.2-1); TOT PROT 7.4 g/dl (6.4-8.2)
[2024-02-13] MEDS: DEXTROSE 50%-WATER 25 GM/50 ML DISP.SYRIN IVPUSH ONE (14:58)
[2024-02-13 15:06] VITALS: BMI 17.1
[2024-02-14 08:10] LABS: BASO % 0.5 % (0-2.0); EOS % 4.4 % (0-4.5); HEMATOCRIT 37.4 % (35.4-49); HEMOGLOBIN 12.4 GM/dL (11.7-16.9); LYMPH % 17.6 % (8-40); MCH 30.2 pg (25.7-33.7); MCHC 33.1 g/dl (32.0-35.9); MEAN CELL VOLUME 91.3 fl (80-96); MEAN PLT VOLUME 8.8 fl (7.5-11.1); MONO % 9.1 % (3.8-10.2); NEUT % 68.4 % (42.8-82.8); PLATELET COUNT 233 10^3/uL (134-434); RDW 14.5 % (11.9-15.9)
[2024-02-14 08:28] LABS: POTASSIUM 3.7 mmol/L (3.5-5.1)
[2024-02-14 08:31] LABS: CALCIUM 8.6 mg/dL (8.5-10.1)
[2024-02-14 08:32] LABS: BLOOD UREA NITROGEN 14.7 mg/dL (7-18)
[2024-02-14 08:35] LABS: CREATININE 0.6 mg/dL (0.55-1.3)
[2024-02-14 08:36] LABS: BILIRUBIN,TOTAL 0.6 mg/dL (0.2-1); TOT PROT 5.6 g/dl (6.4-8.2)
[2024-02-14 08:39] LABS: ALBUMIN 2.7 g/dl (3.4-5.0)
[2024-02-14] MEDS: PIPERACILLIN/TAZOB 3.375 GM 50 ML IVPB SCH (11:36)
[2024-02-14] MEDS: QUEtiapine FUMARATE 25 MG TABLET PO SCH (13:02)
[2024-02-14] MEDS: PIPERACILLIN/TAZOB 3.375 GM 3.375 GM in DEXTROSE 5%-WATER - 50 ML IVPB SCH (18:58)
[2024-02-14] MEDS: SENNOSIDES 8.6MG TABLET (FP) PO SCH (21:14)
[2024-02-15] MEDS: LORazepam 2 MG/ML SDV VIAL IVPUSH ONE (02:05)
[2024-02-15] MEDS: BISACODYL 5 MG TABLET.DR (FP) PO SCH (12:29)
[2024-02-15] MEDS: QUEtiapine FUMARATE 25 MG TABLET PO ONE (17:56)
[2024-02-16] MEDS: QUEtiapine FUMARATE 25 MG TABLET PO ONE (01:34)
[2024-02-16 10:32] LABS: BASO % 0.6 % (0-2.0); HEMOGLOBIN 12.4 GM/dL (11.7-16.9); LYMPH % 22.8 % (8-40); MCHC 33.4 g/dl (32.0-35.9); MEAN CELL VOLUME 89.8 fl (80-96); MEAN PLT VOLUME 8.6 fl (7.5-11.1); MONO % 10.4 % (3.8-10.2); NEUT % 58.2 % (42.8-82.8); PLATELET COUNT 247 10^3/uL (134-434); RBC 4.12 M/mm3 (4.00-5.60); RDW 14.4 % (11.9-15.9); WHITE BLOOD COUNT 7.6 K/mm3 (4.0-10.0)
[2024-02-16 10:45] LABS: POTASSIUM 3.5 mmol/L (3.5-5.1)
[2024-02-16 10:48] LABS: CALCIUM 8.7 mg/dL (8.5-10.1)
[2024-02-16 10:49] LABS: ALBUMIN 2.8 g/dl (3.4-5.0); BLOOD UREA NITROGEN 17.7 mg/dL (7-18); MAGNESIUM 2.2 mg/dL (1.8-2.4)
[2024-02-16 10:51] LABS: CREATININE 0.7 mg/dL (0.55-1.3)
[2024-02-16 10:52] LABS: PHOSPHOROUS 3.6 mg/dL (2.5-4.9)
[2024-02-16 10:53] LABS: BILIRUBIN,TOTAL 0.8 mg/dL (0.2-1); TOT PROT 5.7 g/dl (6.4-8.2)
[2024-02-16] MEDS: QUEtiapine FUMARATE 25 MG TABLET PO PRN (14:18)
[2024-02-16 14:39] VITALS: BP 122/85; PULSE 88; RESP 20; TEMP 97
[2024-02-16] MEDS: LORazepam 2 MG/ML SDV VIAL IVPUSH ONE (15:22)
== END 2024-02-16 16:13 | DRG 871 ==
LOC: JER 09:15 → JERBED 15:37 → J5S 20:22
PROVIDERS: ATTEND Internal Medicine
DX: A41.9 Sepsis, unspecified organism (principal); G93.41 Metabolic encephalopathy; R53.2 Functional quadriplegia; N39.0 Urinary tract infection, site not specified; F03.90 Unspecified dementia, unspecified severity, without behavioral disturbance, psychotic disturbance, mood disturbance, and anxiety; F32.A Depression, unspecified; I10 Essential (primary) hypertension; R74.01 Elevation of levels of liver transaminase levels
CPT/HCPCS: 0241U-QW; 36415; 70450-TC; 71045-TC-FY; 76705-TC; 80053; 81003; 82803; 82962; 83605; 83735; 84100; 84484; 85025; 85027; 85610; 85730; 86704; 86803; 86850; 86900; 86901; 87040; 87070; 87086; 87186; 87205; 87340; 87517; 87635; 93005; 93010; 99285-25; J0131

== ENCOUNTER 2024-03-07 13:50 | Emergency (ER) | payer OTHER ==
[2024-03-07 14:05] VITALS: BP 110/57; PULSE 68; RESP 17; TEMP 98; BMI 23.6
[2024-03-07] MEDS: HALOPERIDOL LACTATE 5 MG/ML IM ONE ×2 (15:00→15:55)
[2024-03-07] MEDS ORDERED: HALOPERIDOL LACTATE 5 MG/ML ONE ×2 (15:01→15:51)
[2024-03-07] MEDS ORDERED: MIDAZOLAM HCL 2 MG/2 ML SINGLE DOSE VIAL ONE (16:50)
[2024-03-07] MEDS: MIDAZOLAM HCL 2 MG/2 ML SINGLE DOSE VIAL IM ONE (16:55)
[2024-03-07] MEDS: QUEtiapine FUMARATE 25 MG TABLET PO ONE (16:55)
[2024-03-07 17:29] LABS: BASO % 0.5 % (0-2.0); EOS % 2.3 % (0-4.5); HEMATOCRIT 37.2 % (35.4-49); HEMOGLOBIN 12.4 GM/dL (11.7-16.9); LYMPH % 7.5 % (8-40); MCHC 33.3 g/dl (32.0-35.9); MEAN CELL VOLUME 90.1 fl (80-96); MONO % 6.2 % (3.8-10.2); NEUT % 83.5 % (42.8-82.8); PLATELET COUNT 238 10^3/uL (134-434); RBC 4.12 M/mm3 (4.00-5.60); RDW 14.8 % (11.9-15.9); WHITE BLOOD COUNT 11.2 K/mm3 (4.0-10.0)
[2024-03-07 17:37] LABS: INR 0.99 (0.83-1.09); PROTHROMBIN TIME (PATIENT) 11.4 SEC (9.7-13.0)
[2024-03-07 17:47] LABS: POTASSIUM 4.1 mmol/L (3.5-5.1)
[2024-03-07 17:49] LABS: CALCIUM 8.5 mg/dL (8.5-10.1)
[2024-03-07 17:50] LABS: ALBUMIN 3.1 g/dl (3.4-5.0); BLOOD UREA NITROGEN 24.1 mg/dL (7-18)
[2024-03-07 17:53] LABS: CREATININE 0.6 mg/dL (0.55-1.3)
[2024-03-07 17:55] LABS: BILIRUBIN,TOTAL 0.4 mg/dL (0.2-1); TOT PROT 6.1 g/dl (6.4-8.2)
[2024-03-07 18:06] LABS: PH,URINE 7.5 (5.0-8.0); URINE APPEARANCE CLEAR; URINE BILIRUBIN NEGATIVE (NEGATIVE); URINE COLOR YELLOW; URINE GLUCOSE (UA) NEGATIVE (NEGATIVE); URINE KETONE NEGATIVE (NEGATIVE); URINE LEUK ESTERASE NEGATIVE (NEGATIVE); URINE NITRITE NEGATIVE (NEGATIVE); URINE PROTEIN NEGATIVE (NEGATIVE)
== END 2024-03-08 00:35 ==
LOC: JER 13:50
PROC: 3E023GC Introduction of Other Therapeutic Substance into Muscle, Percutaneous Approach (ICD-10-PCS; principal; 2024-03-07)
PROC: 3E023GC Introduction of Other Therapeutic Substance into Muscle, Percutaneous Approach (ICD-10-PCS; 2024-03-07)
PROC: 3E023GC Introduction of Other Therapeutic Substance into Muscle, Percutaneous Approach (ICD-10-PCS; 2024-03-07)
DX: Z04.3 Encounter for examination and observation following other accident (principal); Z20.822 Contact with and (suspected) exposure to COVID-19
CPT/HCPCS: 0241U-QW; 36415; 70450-TC; 71045-TC-FY; 72125-TC; 72170-TC-FY; 80053; 81003; 82550; 82553; 84484; 85025; 85610; 85730; 87086; 99285-25